=== PATIENT | male | born 2000 | race Caucasian/White ===

== ENCOUNTER 2022-12-13 21:52 | Emergency (ER) | payer SELFPAY ==
[~2022-12-13] VITALS: Ht 177.8 cm; Wt 113.2 kg
[2022-12-13 22:01] VITALS: BP 160/94
[2022-12-13] MEDS ORDERED: LORAZEPAM 1MG TABLET PO ONE (22:45)
== END 2022-12-14 00:09 | disposition home or self-care (01) ==
LOC: ER 21:52
DX: R00.0 Tachycardia, unspecified (principal); R03.0 Elevated blood-pressure reading, without diagnosis of hypertension; J40 Bronchitis, not specified as acute or chronic; Z68.35 Body mass index [BMI] 35.0-35.9, adult
CPT/HCPCS: 93005; 99283

== ENCOUNTER 2025-01-18 10:45 | Emergency (ER) | payer MEDICAID, OTHER ==
[~2025-01-18] VITALS: Ht 177.8 cm; Wt 90.7 kg
[2025-01-18 10:54] VITALS: O2SAT 97
[2025-01-18 11:31] LABS: BASOPHILS % 0.8 % (0.0-2.0); EOSINOPHILS % 0.2 % (0.0-5.0); HEMATOCRIT. 46.8 % (42.0-52.0); HEMOGLOBIN. 15.4 g/dL (14.0-18.0); LYMPHOCYTES % 15.1 % (20.0-50.0); MEAN CORPUSCULAR HEMOGLOBIN 26.4 pg (28.0-32.0); MEAN CORPUSCULAR HGB CONC 32.9 g/dL (31.0-37.0); MEAN CORPUSCULAR VOLUME 80.4 fL (80.0-94.0); MEAN PLATELET VOLUME 7.9 fl (7.4-10.4); MONOCYTES % 7.2 % (2.0-8.0); NEUTROPHILS % 76.7 % (40.0-76.0); PLATELET 263 x1000/uL (130-400); RED BLOOD CELL COUNT 5.83 mill/uL (4.7-6.1); RED CELL DISTRIBUTION WIDTH 14.3 % (11.6-14.6); WHITE BLOOD COUNT 11.2 x1000/uL (4.5-11.0)
[2025-01-18 11:43] LABS: CHLORIDE 103 mEq/L (98-107); POTASSIUM 4.1 mEq/L (3.5-5.1); SODIUM 139 mEq/L (136-145)
[2025-01-18] MEDS: LORAZEPAM 1MG TABLET PO ONE (11:43)
[2025-01-18 11:44] LABS: CARBON DIOXIDE 24 mEq/L (21-32)
[2025-01-18 11:45] LABS: CALCIUM 9.9 mg/dL (8.7-10.4)
[2025-01-18 11:49] LABS: CREATININE 0.8 mg/dL (0.6-1.3); GLUCOSE 129 mg/dL (70-105); UREA NITROGEN BLOOD 15 mg/dL (9-23)
[2025-01-18 11:50] LABS: TROPONIN I HIGH SENSITIVITY < 4 ng/L (3.0-53)
[2025-01-18 13:52] VITALS: BP 128/86; PULSE 108; RESP 18; TEMP 36.9; O2SAT 96
== END 2025-01-18 13:54 | disposition home or self-care (01) ==
LOC: ER 10:45
DX: R07.89 Other chest pain (principal)
CPT/HCPCS: 36415; 71045; 80048; 84484; 85025; 93005; 99285